=== PATIENT | male | born 1985 | race Asian ===

== ENCOUNTER 2018-09-21 08:11 | Emergency (ER) | payer MEDICAID ==
[~2018-09-21] VITALS: Ht 180.3 cm; Wt 88.5 kg
[2018-09-21 08:16] VITALS: BP_SYST 131
--- NOTE | 2018-09-21 08:30 | NUR ---
PATIENT SITTING UP ON BED. AA&Ox4. RESPIRATIONS EVEN AND UNLABORED. SPEAKING FULL SENTENCES. PT WITH C/O CONSTANT, PRESSURE-LIKE, NON-RADIATING, RIGHT SIDED CHEST PAIN x2 DAYS. PAIN REPRODUCIBLE UPON PALPATION. DENIES OF ANY NAUSEA, VOMITING, HEADACHE OR DIZZINESS. NO NUMBNESS OR TINGLING. PAIN = 9/10; NO OBJECTIVE S/SX OF PAIN OBSERVED AT THIS TIME. REST, RELAXATION, AND DEEP BREATHING ENCOURAGED. WILL CONTINUE TO MONITOR.
--- NOTE | 2018-09-21 08:35 | NUR ---
ER Dr. STONE at bedside examining patient.
[2018-09-21] MEDS ORDERED: KETOROLAC TROMETHAMINE 15 MG VIAL IVP ONE (08:45)
[2018-09-21 09:01] LABS: BASOPHILS % (AUTO) 0.5 % (0.0-2.0); EOSINOPHILS # (AUTO) 0.2 K/uL (0.0-0.4); EOSINOPHILS % (AUTO) 3.5 % (0.0-4.0); HEMATOCRIT 46.9 % (36-54); HEMOGLOBIN 15.6 g/dL (14.0-18.0); LYMPHOCYTES # (AUTO) 1.5 K/uL (1.0-5.5); LYMPHOCYTES % (AUTO) 24.8 % (20.5-51.5); MEAN CORPUSCULAR HEMOGLOBIN 30 pg (27-31); MEAN CORPUSCULAR HGB CONC 33 % (32-36); MEAN CORPUSCULAR VOLUME 91 fL (79.0-98.0); MONOCYTES # (AUTO) 0.5 K/uL (0.0-1.0); MONOCYTES % (AUTO) 7.5 % (1.7-9.3); NEUTROPHILS # (AUTO) 3.9 K/uL (1.8-7.7); NEUTROPHILS % (AUTO) 63.7 % (40.0-70.0); PLATELET COUNT (AUTO) 258 K/uL (130-430); RED BLOOD CELL COUNT(AUTO) 5.17 MIL/uL (4.2-6.2); RED CELL DISTRIBUTION WIDTH 12.5 % (9.0-15.0); WHITE BLOOD COUNT (AUTO) 6.1 K/uL (4.8-10.8)
[2018-09-21 09:09] LABS: CALCIUM 9.1 mg/dL (8.4-11.0); CREATININE 0.92 mg/dL (0.55-1.30); POTASSIUM 3.8 mmol/L (3.5-5.1)
[2018-09-21 09:13] LABS: INR 0.9 (0.80-1.20); PROTHROMBIN TIME 9.6 SECS (9.5-12.5)
[2018-09-21 09:15] LABS: ALBUMIN 3.9 g/dL (3.4-4.8); TOTAL BILIRUBIN 0.3 mg/dL (0.0-1.0)
--- NOTE | 2018-09-21 09:30 | NUR ---
PATIENT IN NO ACUTE DISTRESS. RESTING COMFORTABLY IN BED. WILL CONTINUE TO MONITOR.
[2018-09-21 10:00] VITALS: BP_SYST 120
--- NOTE | 2018-09-21 10:00 | NUR ---
Patient given written and verbal discharge instructions and verbalizes understanding. ER MD discussed with patient the results and treatment provided. Patient in stable condition. ID arm band removed. IV catheter removed intact and dressing applied, no active bleeding. Rx of NAPROXEN given. Patient educated on pain management and to follow up with PMD. Pain Scale 5/10; TOLERABLE VERBALIZED. NO OBJECTIVE S/SX OF PAIN OBSERVED. Opportunity for questions provided and answered. Medication side effect fact sheet provided. PATIENT IN NO ACUTE DISTRESS. STABLE GAIT.
== END 2018-09-21 10:00 | disposition home or self-care (01) ==
LOC: SED 08:11
DX: R07.89 Other chest pain (principal)
CPT/HCPCS: 36415; 71045; 80053; 82550; 84484; 85025; 85610; 85730; 93005; 96374; 99284; J1885